=== PATIENT | male | born 1960 | race Two or more races ===

== ENCOUNTER 2024-04-23 11:18 | Inpatient (IN) | payer OTHER ==
[~2024-04-23] VITALS: Ht 177.8 cm; Wt 61.2 kg
--- NOTE | 2024-04-23 11:43 | NUR ---
REFIERE 2 PÉREZ [facility] RE[facility]ERE LO [facility] EN REP DOM EL ASIA DE JESSICA LE REALIZARON CT Y REFIERE HOY CONTINUAR CON MAREOS Y QUE NO PUEDE SUSPENSION CORD TIER LA PIERNA DERECHA Y EN LA MANANA NO PODIA HABLAR Y REFIERE NO TENER CONTROL DE LADO DERECHO DEL CUERPO.
[2024-04-23] MEDS ORDERED: COZAAR25 MG PO (11:47)
[2024-04-23] MEDS ORDERED: 0.9 % SODIUM CHLORIDE 1,000 ML IV SCH ×2 (12:30→19:45)
[2024-04-23 13:28] LABS: HEMATOCRIT 44.4 % (39.0-48.0); MEAN CELL VOLUME 91.1 fL (80.0-100.00); MEAN CORPUSCULAR HEMOGLOBIN 30.7 pg (27.00-32.0); MEAN CORPUSCULAR HGB CONC 33.7 g/dl (32.0-36.0); PLATELET COUNT 244 K/uL (150-450); RED BLOOD COUNT 4.88 M/uL (4.00-6.00); RED CELL DISTRIBUTION WIDTH 12.8 % (11.5-14.5)
--- NOTE | 2024-04-23 13:31 | NUR ---
PTE ALERTA Y ORIENTADO X3, SE EDUCA SOBRE TX MEDICO Y REFIERE ACEPTAR. SE CANALIZA Y SE COLECTAN MUESTRAS DE LAB BAJO MEDIDAS ASEPTICAS. EKG REALIZADO POR RN DE TRIAGE. SE HACE ENTREGA DE ENVASE PARA U/A.
[2024-04-23 13:42] LABS: CALCIUM 9.2 mg/dL (8.5-10.1); CREATININE SERUM 0.9 mg/dL (0.70-1.30); GFR 85.23; POTASSIUM 3.82 mEq/L (3.5-5.1)
[2024-04-23 15:03] LABS: URINE APPEARANCE Clear; URINE BILIRRUBIN Negative (NEGATIVE); URINE BLOOD Negative; URINE COLOR Yellow; URINE GLUCOSE Negative (NEGATIVE); URINE KETONE Negative (NEGATIVE); URINE LEUKOCYTE Negative; URINE NITRATE Negative; URINE PROTEIN Negative (NEGATIVE); URINE UROBILINOGEN 0.2 E.U./dl
[2024-04-23 15:30] LABS: URINE BACTERIA 1.2 uL (0.0-1933); URINE EPITHELIAL CELLS 0.6 uL (0.0-38.8); URINE RBC 0.5 uL (0.0-20.8); URINE WBC 1.7 uL (0.0-23.2)
[2024-04-23] MEDS ORDERED: ENALAPRILAT DIHYDRATE 1.25 MG/ML VIAL IV ONE (17:45)
[2024-04-23] MEDS ORDERED: ATORVASTATIN CALCIUM 40 MG TABLET PO SCH (19:34)
[2024-04-23] MEDS ORDERED: ASPIRIN 81 MG TAB.CHEW PO SCH (19:34)
[2024-04-23] MEDS ORDERED: ACETAMINOPHEN 500 MG GEL..CAP PO PRN (19:45)
[2024-04-24 01:26] VITALS: BP 166/88; O2SAT 95
[2024-04-24 01:29] LABS: INR 1.04; PARTIAL THROMBOPLASTIN TIME 31.6 SECONDS (22.0-34.0); PROTHROMBIN TIME 11.3 SECONDS (9.0-11.5)
[2024-04-24 06:47] LABS: CHOL HDL RATIO 4.2 (0-5.0); TSH 1.65 uIU/mL (0.358-3.74)
[2024-04-24 07:40] VITALS: BP 144/86; O2SAT 97
[2024-04-24] MEDS ORDERED: LOSARTAN POTASSIUM 50 MG TABLET PO SCH (09:00)
[2024-04-24] MEDS ORDERED: FAMOTIDINE/PF 20 MG in 0.9 % SODIUM CHLORIDE 8 ML IV PUSH SCH (09:00)
[2024-04-24 12:50] VITALS: BP 155/85; O2SAT 99
[2024-04-24 16:35] VITALS: O2SAT 94
[2024-04-24 17:47] VITALS: BP 173/90
[2024-04-24] MEDS ORDERED: CLOPIDOGREL BISULFATE 75 MG TABLET PO SCH (18:49)
[2024-04-24 19:26] VITALS: O2SAT 95
[2024-04-25 02:10] VITALS: BP 146/81; O2SAT 95
[2024-04-25 08:49] LABS: HEMOGLOBIN 15.2 g/dL (13-16.00); MEAN CELL VOLUME 91.6 fL (80.0-100.00); MEAN CORPUSCULAR HGB CONC 33.8 g/dl (32.0-36.0); PLATELET COUNT 245 K/uL (150-450); RED BLOOD COUNT 4.91 M/uL (4.00-6.00); RED CELL DISTRIBUTION WIDTH 12.9 % (11.5-14.5)
[2024-04-25 08:58] VITALS: BP 161/79; O2SAT 92
[2024-04-25 09:49] LABS: CALCIUM 8.9 mg/dL (8.5-10.1); CREATININE SERUM 0.83 mg/dL (0.70-1.30); GFR 93.27; POTASSIUM 4.44 mEq/L (3.5-5.1)
[2024-04-25] MEDS ORDERED: HYDROCHLOROTHIAZIDE 12.5 MG CAPSULE PO SCH ×2 (11:56→17:00)
[2024-04-25 16:30] VITALS: O2SAT 94
[2024-04-25 19:15] VITALS: BP 173/95
[2024-04-25 19:49] VITALS: O2SAT 95
[2024-04-26] VITALS (9 sets, daily range): BP systolic 146–175; BP diastolic 84–91; O2SAT 93–97
[2024-04-26] MEDS ORDERED: AMLODIPINE BESYLATE 5 MG TABLET PO SCH (09:00)
[2024-04-26] MEDS ORDERED: ATORVASTATIN CALCIUM 40 MG TABLET PO SCH (09:00)
[2024-04-27 02:00] VITALS: O2SAT 92
[2024-04-27 02:52] VITALS: BP 130/85; O2SAT 97
[2024-04-27 05:47] VITALS: O2SAT 96
== END 2024-04-27 09:16 | disposition home or self-care (01) | DRG 65 ==
LOC: ER 11:20 → MEDJ 21:53 → SEC-K 21:53 → MEDJ 04-24 13:45
PROVIDERS: Emergency Medicine; General Practice; ADMIT Student in an Organized Health Care Education/Training Program; ATTEND Student in an Organized Health Care Education/Training Program
PROC: BW28ZZZ Computerized Tomography (CT Scan) of Head (ICD-10-PCS; principal; 2024-04-23)
PROC: B030ZZZ Magnetic Resonance Imaging (MRI) of Brain (ICD-10-PCS; 2024-04-23)
PROC: B246ZZZ Ultrasonography of Right and Left Heart (ICD-10-PCS; 2024-04-23)
PROC: B245ZZZ Ultrasonography of Left Heart (ICD-10-PCS; 2024-04-23)
PROC: 4A12X4Z Monitoring of Cardiac Electrical Activity, External Approach (ICD-10-PCS; 2024-04-24)
DX: I63.89 Other cerebral infarction (principal); G45.9 Transient cerebral ischemic attack, unspecified; I10 Essential (primary) hypertension; R09.89 Other specified symptoms and signs involving the circulatory and respiratory systems
CPT/HCPCS: 70551